=== PATIENT | female | born 1940 ===

== ENCOUNTER 2021-12-16 12:26 | Outpatient (REF) | payer MEDICARE, SELFPAY ==
[2021-12-16 12:35] VITALS: BP 177/84; PULSE 65; RESP 16; TEMP 36.3; O2SAT 98; BMI 32.1
== END 2021-12-16 12:27 | disposition home or self-care (01) ==
LOC: HO.MS 12:26
PROVIDERS: PCP Pediatrics; Visit Provider Ophthalmology
PROC: (CPT 66821; principal; 2021-12-16 14:30)
DX: H26.491 Other secondary cataract, right eye (principal); Z96.1 Presence of intraocular lens; I10 Essential (primary) hypertension; M06.9 Rheumatoid arthritis, unspecified; J45.909 Unspecified asthma, uncomplicated; Z79.899 Other long term (current) drug therapy; Z88.0 Allergy status to penicillin; Z86.73 Personal history of transient ischemic attack (TIA), and cerebral infarction without residual deficits; Z87.891 Personal history of nicotine dependence
CPT/HCPCS: 66821

== ENCOUNTER 2024-06-27 11:14 | Outpatient (AMB) | payer MEDICARE, SELFPAY ==
[2024-06-27 11:27] VITALS: BP 150/72; PULSE 89; O2SAT 97; BMI 30.7
--- NOTE | 2024-06-27 11:27 | MHC.OFFVIS ---
Vital Signs 06/27/24 11:27 Height 5 ft 1.5 in Weight 165 lb BMI 30.7 BP 150/72 H Blood Pressure Location Lt brachial Position Sitting Pulse 89 Pulse Source Pulse Oximeter Pulse Oximetry (%) 97 Oxygen Delivery Method Room Air Intake Visit Reasons: Lumbar Radiculopathy Intake Note: New patient Externally referred by [facility] by PCP. Presents today for Lumbar Radiculopathy. Allergies amoxicillin Allergy (Mild, Unverified 06/27/24 11:30) Rash Penicillins Allergy (Mild, Unverified 06/27/24 11:30) Rash Medication List - Last Reconciled 06/27/24 by Dwaine Courtney MD acetaminophen 500 mg PO Q6H PRN albuterol sulfate 90 mcg/actuation 2 puffs inhalation QID apixaban (Eliquis) 5 mg PO BID cholecalciferol (vitamin D3) 50 mcg PO DAILY cinacalcet 30 mg PO DAILY losartan 25 mg PO DAILY magnesium 500 mg PO DAILY metoprolol succinate ER 50 mg PO DAILY mometasone 0.1% 1 appl topical DAILY naproxen sodium 220 mg PO BID PRN prednisone 20 mg PO DAILY HPI Comments Details: This is an 84-year-old female who presents for evaluation of osteoarthritis. Patient used to follow-up with Dr. Nguyen in the past, mostly for her arthritis. Apparently there was an episode of right wrist synovitis that was attributed to pseudogout attributed to chondrocalcinosis. Patient has history of hyperparathyroidism on cinacalcet. She states that she continues to have left-sided thoracic back pain. She had an injection by Dr. Mata a few months ago and it was not very helpful. She also has pain on the inside of her right knee with walking. She stated that prednisone was the only medication that provided some relief. Wonders whether she can take prednisone again. [facility], [facility] Medical History Urolithiasis Osteoporosis Essential hypertension Lung nodule Hyperparathyroidism Afib CVA (cerebral vascular accident) LBBB (left bundle branch block) Abnormal ECG Family History Mother Arthritis H/O cancer of gall bladder Social History Alcohol intake: current Comment: occ wine Patient Tobacco Use Status: Never used Tobacco Review of Systems Const Reports fatigue and Reports weakness ENT Reports hearing loss Card Reports irregular heart rhythm and Reports dyspnea Resp Reports dyspnea Musc Reports back pain Skin/Breast Reports unusual bruising Neuro Reports weakness Psych Reports anxiety Endo Reports fatigue Physical Exam Vital Signs: Last Vital Signs Pulse 89 06/27/24 11:27 BP 150/72 H 06/27/24 11:27 Pulse Ox 97 06/27/24 11:27 Oxygen Delivery Method Room Air 06/27/24 11:27 BMI result Body Mass Index 30.7 Const General: cooperative, healthy appearing and comfortable Nutritional Appearance: obese Orientation/consciousness: patient oriented x3 Limitations: no limitations HEENT Head: Yes normocephalic and Yes atraumatic Mouth: moist mucous membranes Resp Effort & Inspection: normal respiratory effort and able to speak in complete sentences Auscultation: clear to auscultation bilaterally Cardio Rhythm: abnormal rhythm irregularly irregular Skin General skin exam: no rashes or lesions noted Neuro General: patient oriented x3 Extrem Other: Osteoarthritic changes of both hands with no active synovitis Normal range of motion of elbows and shoulders without pain Negative straight leg raise test bilaterally Results Reviewed Results Reviewed: X-ray Exam Of Pelvis Result Date: 10/24/2013 PELVIS HISTORY: Injured in fall with blunt trauma on 10/20/13. History of osteoporosis COMMENT: AP view of the pelvis with hips in neutral position. There is no evidence of a fracture. A relatively prominent trabecular pattern is present in the right intertrochanteric area, consistent with normal variation and not obviously changed compared with the previous exam on 06/06/11. Mild joint space narrowing consistent with osteoarthritis is present in both hips, stable since 06/06/11. If the patient has right hip pain with persistent symptoms, I would suggest that MRI be considered. IMPRESSION: No evidence of acute abnormalities. ? X-ray Exam Of Pelvis Result Date: 06/08/2011 EXAM: PELVIS AND LEFT HIP HISTORY: Left hip pain. No injury. COMMENT: AP view of the pelvis; AP and frog lateral views of the left hip. There is mild superomedial joint space narrowing with small marginal osteophytes on the left. Similar joint space narrowing on the right. Unremarkable SI joints. Otherwise within normal limits. IMPRESSION : Mild osteoarthritis in both hips. Rashi Harper MD ? X-ray Exam Of Hip, Complete Result Date: 06/08/2011 EXAM: PELVIS AND LEFT HIP HISTORY: Left hip pain. No injury. COMMENT: AP view of the pelvis; AP and frog lateral views of the left hip. There is mild superomedial joint space narrowing with small marginal osteopytes on the left. Similar joint space narrowing on the right. Unremarkable SI joints. Otherwise within normal limits. IMPRESSION : Mild osteoarthritis in both hips. Rashi Harper MD ? X-ray Knee 3 View - W/o Injury Result Date: 11/22/2020 RIGHT KNEE VIEWS: Lateral, Frontal, and Merchant (bilateral) HISTORY: Acute pain of right knee. FINDINGS: There is calcification of the menisci. There is severe narrowing of the medial femoral tibial compartment. There is mild spurring of the lateral femoral tibial compartment and patellofemoral compartment. There is mild spurring at the insertion of the quadriceps tendon on the patella. No fracture or malalignment is seen. Soft tissues are normal. The patellae are normally positioned on the Merchant view. A moderate knee joint effusion joint effusion is seen. IMPRESSION: Chondrocalcinosis. Osteoarthritis. Moderate knee joint effusion. ? X-ray Exam Of Hand, 3+ Views Result Date: 04/23/2018 Bilateral hand series: HISTORY: Pain, chondrocalcinosis 3 views of each hand. Right hand including wrist: Severe osteoarthritis is seen in the radiocarpal joint, intercarpal joints, first CMC joint and second through fifth DIP joints. Mild osteoarthritis first MCP and second through fifth PIP joints. Triangular cartilage calcification. Left hand including wrist: Severe osteoarthritis radiocarpal joint, first CMC and second through fifth DIP joints. IMPRESSION: Severe osteoarthritis both hands. Chondrocalcinosis right wrist. ? Assessment & Plan Assessment & Plan (1) Generalized osteoarthritis: Code(s): M15.9 - Polyosteoarthritis, unspecified Category: Medical Plan: This is an 84-year-old female who presents for evaluation of generalized osteoarthritis. Upon evaluation I do not see any signs suggestive of an autoimmune rheumatic disease. Patient was wondering about using prednisone as needed for her arthritis. I explained long-term risks of prednisone including weight gain, fragile skin, cataracts, glaucoma, osteoporosis. Patient already has known history of osteopenia with a high FRAX score based on DEXA in 2014. She has not had any more recent DEXA scan to my knowledge. Patient wondered about using a leave. I explained that it also would not be a good idea given the fact that she takes Eliquis regularly for AFib. She may use Tylenol and consider using Salonpas patch Follow-up with other providers Plan I spent 30 minutes reviewing patient's chart, evaluating patient, counseling patient and documenting in the chart Coding Level of Care Code New Pt Level 3 (88626) Diagnoses Generalized osteoarthritis M15.9
== END 2024-06-27 12:29 | disposition home or self-care (01) ==
PROVIDERS: PCP Pediatrics; Visit Provider Student in an Organized Health Care Education/Training Program
DX: M15.9 Polyosteoarthritis, unspecified (principal)
CPT/HCPCS: 99203

== ENCOUNTER → 2024-06-27 11:14 | Outpatient (BNVA) | payer MEDICARE, SELFPAY | PROVIDERS: PCP Pediatrics; Visit Provider Student in an Organized Health Care Education/Training Program | DX: M15.9 Polyosteoarthritis, unspecified (principal) | CPT/HCPCS: 99202 ==